=== PATIENT | male | born 1940 | race Two or more races ===

== ENCOUNTER 2018-09-10 07:06 | Emergency (ER) | payer OTHER, MEDICAID ==
[~2018-09-10] VITALS: Ht 175.3 cm; Wt 74.4 kg
[2018-09-10 07:45] VITALS: BP 157/87
[2018-09-10] MEDS ORDERED: ONDANSETRON HCL 4 MG/2 ML VIAL IV ONE (07:45)
[2018-09-10] MEDS ORDERED: SODIUM CHLORIDE 0.9% 1,000 ML IV ONE (07:45)
[2018-09-10] MEDS ORDERED: MORPHINE SULFATE 4 MG/ML SYR/VIAL IV ONE (07:45)
[2018-09-10 08:04] LABS: Basophils # (auto) 0 uL; Basophils % (auto) 0.7 % (0.0-2.0); Eosinophils # (auto) 0.1 uL; Eosinophils % (auto) 1.4 % (0.0-7.0); Hematocrit 46.5 % (41.0-53.0); Hemoglobin 16.2 g/dL (13.5-17.5); Lymphocytes # (auto) 0.9 uL; Lymphocytes % (auto) 22.9 % (10.0-50.0); Mean Corpuscular Hemoglobin 31.6 pg (28.0-32.0); Mean Corpuscular Hgb Conc. 34.8 g/dL (32.0-36.0); Mean Corpuscular Volume 90.7 fL (80.0-100.0); Monocytes # (auto) 0.4 uL; Monocytes % (auto) 9.5 % (0.0-12.0); Neutrophils # (auto) 2.7 uL; Neutrophils % (auto) 65.5 % (37.0-80.0); Nucleated Red Blood Cells % 0.1 %; Platelet Count (auto) 233 10^3/uL (140-450); Red Blood Cells 5.13 10^6/uL (4.5-5.90); Red Cell Distribution Width 14.1 % (11.8-14.3); White Blood Cell 4.1 10^3/uL (4.4-10.8)
[2018-09-10 08:23] LABS: Alanine Aminotransferase 26 U/L (16-61); Albumin 3.9 g/dL (3.4-5.0); Amylase 56 U/L (25-115); Anion Gap 4 (5-15); Blood Urea Nitrogen 16 mg/dL (7-18); Calcium 8.8 mg/dL (8.5-10.1); Carbon Dioxide 25 mmol/L (21-32); Chloride 106 mmol/L (98-107); Glucose 95 mg/dL (74-106); Lipase 106 U/L (73-393); Magnesium 2.2 mg/dL (1.6-2.6); Potassium 3.8 mmol/L (3.5-5.1); Sodium 135 mmol/L (136-145)
[2018-09-10 08:29] LABS: Alkaline Phosphatase 68 U/L (45-117); Aspartate Aminotransferase 22 U/L (15-37); BUN/Creatinine Ratio 14.7; Bilirubin, Total 1.3 mg/dL (0.2-1.0); GFR African American 84 mL/min; GFR Non-African American 70 mL/min; Total Protein 7.9 g/dL (6.4-8.2)
[2018-09-10 09:03] LABS: Urine Amorphous Crystal FEW /hpf (None Seen); Urine Bacteria NONE SEEN /hpf (None Seen); Urine Blood Negative /uL (Negative); Urine Hyaline Cast FEW /lpf (0 - 2); Urine Mucus FEW (None Seen); Urine Specific Gravity 1.014 (1.001-1.035); Urine WBC 2 /hpf (0 - 3)
== END 2018-09-10 11:08 | disposition home or self-care (01) ==
LOC: EDBD 07:06 → EDUNIT# 07:06 → ER 07:06
DX: K80.10 Calculus of gallbladder with chronic cholecystitis without obstruction (principal); R06.02 Shortness of breath; I10 Essential (primary) hypertension; Z90.49 Acquired absence of other specified parts of digestive tract
CPT/HCPCS: 36415; 74176; 80053; 81001; 82150; 83690; 83735; 84484; 85025; 93005; 96361; 96374; 96375; 99284; J2270; J2405; J7030

== ENCOUNTER 2019-06-09 11:22 | Emergency (ER) | payer OTHER, MEDICAID ==
[~2019-06-09] VITALS: Ht 175.3 cm; Wt 76.2 kg
[2019-06-09] MEDS ORDERED: SODIUM CHLORIDE 0.9% 1,000 ML IV ONE (11:26)
[2019-06-09 12:02] LABS: Basophils # (auto) 0 uL; Basophils % (auto) 0.8 % (0.0-2.0); Eosinophils # (auto) 0.1 uL; Eosinophils % (auto) 1.9 % (0.0-7.0); Hematocrit 44.4 % (41.0-53.0); Hemoglobin 15.3 g/dL (13.5-17.5); Lymphocytes # (auto) 1.2 uL; Lymphocytes % (auto) 25.7 % (10.0-50.0); Mean Corpuscular Hemoglobin 31.5 pg (28.0-32.0); Mean Corpuscular Hgb Conc. 34.5 g/dL (32.0-36.0); Mean Corpuscular Volume 91.3 fL (80.0-100.0); Monocytes # (auto) 0.4 uL; Monocytes % (auto) 7.9 % (0.0-12.0); Neutrophils # (auto) 2.9 uL; Neutrophils % (auto) 63.7 % (37.0-80.0); Platelet Count (auto) 211 10^3/uL (140-450); Red Blood Cells 4.86 10^6/uL (4.5-5.90); Red Cell Distribution Width 14.8 % (11.8-14.3); White Blood Cell 4.5 10^3/uL (4.4-10.8)
[2019-06-09 12:14] LABS: Alanine Aminotransferase 24 U/L (16-61); Albumin 3.9 g/dL (3.4-5.0); Anion Gap 7 (5-15); Aspartate Aminotransferase 19 U/L (15-37); BUN/Creatinine Ratio 18.3; Blood Urea Nitrogen 21 mg/dL (7-18); Calcium 8.5 mg/dL (8.5-10.1); Carbon Dioxide 25 mmol/L (21-32); Chloride 109 mmol/L (98-107); GFR African American 79 mL/min; GFR Non-African American 65 mL/min; Glucose 105 mg/dL (74-106); INR 1.01 (0.9-1.15); Partial Thromboplastin Time 26.7 sec (23.64-32.05); Potassium 3.8 mmol/L (3.5-5.1); Sodium 141 mmol/L (136-145)
[2019-06-09 12:18] LABS: Alkaline Phosphatase 68 U/L (45-117); Total Protein 7.7 g/dL (6.4-8.2)
[2019-06-09] MEDS ORDERED: LORazepam 2MG/ML-1ML VIAL IV ONE (12:30)
[2019-06-09] MEDS ORDERED: KETOROLAC TROMETH 30 MG/ML 1ML VIAL IV ONE (12:30)
[2019-06-09] MEDS ORDERED: ASPirin 81 mg TAB PO ONE (12:30)
[2019-06-09] MEDS ORDERED: NITROGLYCERIN 0.4 MG SL TAB SL ONE (12:30)
[2019-06-09 16:13] VITALS: BP 123/60
== END 2019-06-09 17:30 | disposition home or self-care (01) ==
LOC: EDBD 11:22 → ER 11:22
DX: R07.89 Other chest pain (principal); I10 Essential (primary) hypertension; J45.909 Unspecified asthma, uncomplicated; R42 Dizziness and giddiness
CPT/HCPCS: 36415; 71045; 80053; 83880; 84484; 85025; 85610; 85730; 93005; 94761; 96361; 96374; 96375; 99284; J1885; J2060; J7030

== ENCOUNTER 2019-08-30 09:27 | Emergency (ER) | payer OTHER, MEDICAID ==
[~2019-08-30] VITALS: Ht 172.7 cm; Wt 81.6 kg
[2019-08-30 11:04] LABS: Basophils # (auto) 0.1 uL; Basophils % (auto) 0.8 % (0.0-2.0); Eosinophils # (auto) 0.1 uL; Eosinophils % (auto) 0.7 % (0.0-7.0); Hematocrit 48.3 % (41.0-53.0); Hemoglobin 16.6 g/dL (13.5-17.5); Lymphocytes # (auto) 0.7 uL; Lymphocytes % (auto) 7.7 % (10.0-50.0); Mean Corpuscular Hemoglobin 31.4 pg (28.0-32.0); Mean Corpuscular Hgb Conc. 34.3 g/dL (32.0-36.0); Mean Corpuscular Volume 91.6 fL (80.0-100.0); Monocytes # (auto) 0.4 uL; Monocytes % (auto) 4.6 % (0.0-12.0); Neutrophils # (auto) 7.7 uL; Neutrophils % (auto) 86.2 % (37.0-80.0); Nucleated Red Blood Cells % 0.1 %; Platelet Count (auto) 209 10^3/uL (140-450); Red Blood Cells 5.28 10^6/uL (4.5-5.90); Red Cell Distribution Width 14.5 % (11.8-14.3); White Blood Cell 8.9 10^3/uL (4.4-10.8)
[2019-08-30 11:24] LABS: Albumin 4.2 g/dL (3.4-5.0); Anion Gap 4 (5-15); Blood Urea Nitrogen 17 mg/dL (7-18); Calcium 9.1 mg/dL (8.5-10.1); Carbon Dioxide 30 mmol/L (21-32); Chloride 105 mmol/L (98-107); Glucose 109 mg/dL (74-106); Lipase 239 U/L (73-393); Potassium 4.3 mmol/L (3.5-5.1); Sodium 139 mmol/L (136-145)
[2019-08-30 11:30] LABS: Alanine Aminotransferase 45 U/L (16-61); Alkaline Phosphatase 79 U/L (45-117); Aspartate Aminotransferase 47 U/L (15-37); BUN/Creatinine Ratio 15.3; Bilirubin, Total 0.7 mg/dL (0.2-1.0); GFR African American 82 mL/min; GFR Non-African American 68 mL/min; Total Protein 8.7 g/dL (6.4-8.2)
[2019-08-30 13:49] LABS: Urine Bacteria NONE SEEN /hpf (None Seen); Urine Blood Negative /uL (Negative); Urine Specific Gravity 1.009 (1.001-1.035); Urine WBC 1 /hpf (0 - 3)
[2019-08-30 15:00] VITALS: BP 131/75
== END 2019-08-30 15:50 | disposition home or self-care (01) ==
LOC: EDBD 09:27 → ER 09:27
DX: N40.0 Benign prostatic hyperplasia without lower urinary tract symptoms (principal); J45.909 Unspecified asthma, uncomplicated; I10 Essential (primary) hypertension
CPT/HCPCS: 36415; 74176; 80053; 81001; 83690; 84484; 85025; 93005

== ENCOUNTER 2020-06-09 09:45 | Emergency (ER) | payer OTHER, MEDICAID ==
[~2020-06-09] VITALS: Ht 175.3 cm; Wt 68.0 kg
[2020-06-09 10:20] VITALS: BP 181/79
[2020-06-09 10:37] LABS: Basophils # (auto) 0 10 ^3/uL (0-0.2); Basophils % (auto) 0.8 % (0.0-2.0); Eosinophils # (auto) 0.1 10 ^3/uL (0-0.8); Eosinophils % (auto) 1.6 % (0.0-7.0); Hematocrit 47.1 % (41.0-53.0); Hemoglobin 15.6 g/dL (13.5-17.5); Lymphocytes % (auto) 18.4 % (10.0-50.0); Mean Corpuscular Hemoglobin 30.7 pg (28.0-32.0); Mean Corpuscular Hgb Conc. 33.1 g/dL (32.0-36.0); Mean Corpuscular Volume 92.8 fL (80.0-100.0); Monocytes # (auto) 0.4 10 ^3/uL (0-1.3); Neutrophils # (auto) 3.8 10 ^3/uL (1.6-8.6); Neutrophils % (auto) 71.2 % (37.0-80.0); Nucleated Red Blood Cells % 0.1 %; Platelet Count (auto) 240 10^3/uL (140-450); Red Blood Cells 5.07 10^6/uL (4.5-5.90); Red Cell Distribution Width 14.6 % (11.8-14.3); White Blood Cell 5.3 10^3/uL (4.4-10.8)
[2020-06-09 10:39] LABS: Urine Bacteria NONE SEEN /hpf (None Seen); Urine Blood Negative /uL (Negative); Urine Specific Gravity 1.006 (1.001-1.035); Urine WBC <1 /hpf (0 - 3)
[2020-06-09 10:57] LABS: Anion Gap 6 (5-15); Blood Urea Nitrogen 16 mg/dL (7-18); Carbon Dioxide 24 mmol/L (21-32); Chloride 109 mmol/L (98-107); Glucose 93 mg/dL (74-106); Potassium 3.9 mmol/L (3.5-5.1); Sodium 139 mmol/L (136-145)
[2020-06-09 11:02] LABS: Alanine Aminotransferase 31 U/L (16-61); Alkaline Phosphatase 65 U/L (45-117); Aspartate Aminotransferase 26 U/L (15-37); BUN/Creatinine Ratio 12.8; Bilirubin, Total 1.1 mg/dL (0.2-1.0); GFR African American 71 mL/min; GFR Non-African American 59 mL/min; Total Protein 8.1 g/dL (6.4-8.2)
[2020-06-09] MEDS ORDERED: SODIUM CHLORIDE 0.9% 1,000 ML IV ONE (11:50)
[2020-06-09] MEDS ORDERED: SODIUM CHLORIDE 0.9% 500 ML IVB ONE (11:50)
== END 2020-06-09 13:08 | disposition home or self-care (01) ==
LOC: EDBD 09:45 → ER 09:45
DX: T67.5XXA Heat exhaustion, unspecified, initial encounter (principal); I10 Essential (primary) hypertension; R53.1 Weakness; G43.909 Migraine, unspecified, not intractable, without status migrainosus; X58.XXXA Exposure to other specified factors, initial encounter; Y93.89 Activity, other specified; Y92.89 Other specified places as the place of occurrence of the external cause; Y99.8 Other external cause status
CPT/HCPCS: 36415; 70450; 71046; 80053; 81001; 84484; 85025; 93005; 96360; 99285; J7040

== ENCOUNTER 2020-06-22 09:05 | Inpatient (IN) | payer OTHER, MEDICAID ==
[~2020-06-22] VITALS: Ht 175.3 cm; Wt 74.6 kg
[2020-06-22 09:32] LABS: Basophils # (auto) 0 10 ^3/uL (0-0.2); Basophils % (auto) 0.7 % (0.0-2.0); Eosinophils # (auto) 0 10 ^3/uL (0-0.8); Eosinophils % (auto) 0.6 % (0.0-7.0); Hematocrit 43.8 % (41.0-53.0); Hemoglobin 15.2 g/dL (13.5-17.5); Lymphocytes # (auto) 0.9 10 ^3/uL (0.4-5.4); Lymphocytes % (auto) 23.6 % (10.0-50.0); Mean Corpuscular Hemoglobin 32.2 pg (28.0-32.0); Mean Corpuscular Hgb Conc. 34.7 g/dL (32.0-36.0); Mean Corpuscular Volume 92.7 fL (80.0-100.0); Monocytes # (auto) 0.2 10 ^3/uL (0-1.3); Monocytes % (auto) 5.2 % (0.0-12.0); Neutrophils # (auto) 2.8 10 ^3/uL (1.6-8.6); Neutrophils % (auto) 69.9 % (37.0-80.0); Nucleated Red Blood Cells % 0.1 %; Platelet Count (auto) 225 10^3/uL (140-450); Red Blood Cells 4.73 10^6/uL (4.5-5.90); Red Cell Distribution Width 14.4 % (11.8-14.3); White Blood Cell 3.9 10^3/uL (4.4-10.8)
[2020-06-22 09:55] LABS: Alanine Aminotransferase 29 U/L (16-61); Albumin 3.7 g/dL (3.4-5.0); Anion Gap 4 (5-15); Aspartate Aminotransferase 16 U/L (15-37); Blood Urea Nitrogen 13 mg/dL (7-18); Calcium 8.7 mg/dL (8.5-10.1); Carbon Dioxide 25 mmol/L (21-32); Chloride 110 mmol/L (98-107); Glucose 128 mg/dL (74-106); Magnesium 2.2 mg/dL (1.6-2.6); Potassium 3.7 mmol/L (3.5-5.1); Sodium 139 mmol/L (136-145)
[2020-06-22 09:59] LABS: Alkaline Phosphatase 60 U/L (45-117); BUN/Creatinine Ratio 10.7; Bilirubin, Total 0.7 mg/dL (0.2-1.0); GFR African American 74 mL/min; GFR Non-African American 61 mL/min; Total Protein 7.5 g/dL (6.4-8.2)
[2020-06-22 11:02] LABS: Urine WBC None Seen /hpf (0 - 3)
[2020-06-22 11:12] LABS: Urine Bacteria NONE SEEN /hpf (None Seen); Urine Blood Negative /uL (Negative); Urine Specific Gravity 1.006 (1.001-1.035)
[2020-06-22] MEDS ORDERED: SODIUM CHLORIDE 0.9% 1,000 ML IVB ONE (11:45)
[2020-06-22] MEDS ORDERED: cefTRIAXone 1GM/50ML D5W 50 ML IV ONE (11:45)
[2020-06-22 12:43] LABS: INR 1.03 (0.9-1.15); Partial Thromboplastin Time 23.9 sec (23.0-31.2)
[2020-06-22] MEDS ORDERED: ZINC SULFATE 220mg CAP or TAB PO ONE (13:30)
[2020-06-22] MEDS ORDERED: DOXYCYCLINE 100MG/250ML 250 ML IV ONE (13:30)
[2020-06-22] MEDS ORDERED: ASCORBIC ACID 500 MG TAB PO ONE (13:30)
[2020-06-22] MEDS ORDERED: MORPHINE SULF INJ 2 MG/ML SYRINGE 1ML IV PRN ×3 (14:15→15:00)
[2020-06-22] MEDS ORDERED: NITROGLYCERIN 0.4 MG SL TAB SL PRN ×2 (14:15→15:00)
[2020-06-22] MEDS ORDERED: ACETAMINOPHEN 500 MG TAB PO PRN (15:00)
[2020-06-22] MEDS ORDERED: ACETAMINOPHEN 325 MG TAB PO PRN (15:00)
[2020-06-22] MEDS ORDERED: SODIUM CHLORIDE 0.9% 1,000 ML IV SCH (15:00)
[2020-06-22] MEDS ORDERED: ONDANSETRON HCL 4 MG/2 ML VIAL IV PRN (15:00)
[2020-06-22] MEDS ORDERED: LORazepam 0.5 MG TAB PO PRN (15:00)
[2020-06-22] MEDS ORDERED: DOCUSATE SOD 100 MG CAP PO PRN (15:00)
[2020-06-22] MEDS ORDERED: ALUM & MAG HYDROX-SIMETH LIQ(MAALOX) 30 ML PO PRN (15:00)
[2020-06-22] MEDS ORDERED: HYDROcodone-ACET 5/325MG TAB PO PRN (15:00)
[2020-06-22] MEDS ORDERED: hydrALAZINE HCL 25 MG TAB PO PRN (15:15)
[2020-06-22 16:57] LABS: Alcohol, Urine < 3.0 mg/dL (0-10); Amphetamine Screen, Urine NEGATIVE (NEGATIVE); Barbiturate Scree,Urine NEGATIVE (NEGATIVE); Benzodiazephine Screen, Urine NEGATIVE (NEGATIVE); Cannabinoid Screen, Urine NEGATIVE (NEGATIVE); Cocaine Screen, Urine NEGATIVE (NEGATIVE); Opiate Scree,Urine NEGATIVE (NEGATIVE); Phencyclidine Screen, Urine NEGATIVE (NEGATIVE)
--- NOTE | 2020-06-22 16:58 | NUR ---
Telemetry admit from ER CELINA THURSTON admitted to Telemetry unit after SBAR received. Patient oriented to Jaqueline Ernandez, primary RN, unit, room, bed, and unit policies regarding patient care and visiting hours. Patient now on continuous telemetry monitoring, tele box #2 and telemetry reading on arrival to unit is SB @ 55 BPM. Bed set to lowest position/locked, bedside rails up x2, call light within reach. Instructed patient to call for assistance. Patient verbalized understanding. Will continue to monitor q 1hr and prn.
[2020-06-22 17:02] VITALS: BP 138/75
[2020-06-22] MEDS ORDERED: LANS30CA57 PO (18:17)
[2020-06-22] MEDS ORDERED: TRAM50TA2 PO (18:17)
[2020-06-22] MEDS ORDERED: OMEP20TA PO (18:17)
[2020-06-22] MEDS ORDERED: LISI-648 PO (18:17)
[2020-06-22] MEDS ORDERED: METO10TA3 PO (18:17)
[2020-06-22] MEDS ORDERED: MECL1CHW PO (18:17)
[2020-06-22] MEDS ORDERED: HYDR2.5L TOP (18:17)
--- NOTE | 2020-06-22 19:30 | NUR ---
Opening Shift Note Assumed care of patient, awake and alert x4. Patient denies pain or shortness of breath at this time. No sign/symptoms of distress noted or verbalized at this time. Instructed on plan of care and encouraged patient to call for assistance as needed, patient verbalized understanding. Bed is locked in lowest position, side rails x 2 are up, call light is within reach, and bed alarm is on.
[2020-06-22] MEDS: FAMOTIDINE (10MG/ML) 2ML VL IV SCH (21:23)
[2020-06-22] MEDS: ATORVASTATIN 20 MG TAB PO SCH (21:24)
[2020-06-22] MEDS: DOXAZOSIN MESYL 2 MG TAB PO SCH (21:24)
[2020-06-22 22:00] VITALS: BP 150/70
[2020-06-22] MEDS: BUDESONIDE (INHALATION) 180 MCG IH IN SCH (22:12)
[2020-06-22] MEDS: ALBUTEROL SULF HFA 90MCG INH 200DOSE IN SCH (22:12)
--- NOTE | 2020-06-22 22:12 | NUR ---
MDI HELD AT THIS TIME, AWAITING COVID RESULTS. PT IN NO RESPIRATORY DISTRESS. WILL CONTINUE TO MONITOR.
--- NOTE | 2020-06-22 22:52 | NUR ---
EKG EKG performed as ordered by and placed in hardchart.
[2020-06-23 04:32] VITALS: BP 158/77
[2020-06-23] MEDS: BUDESONIDE (INHALATION) 180 MCG IH IN SCH (06:52)
[2020-06-23] MEDS: ALBUTEROL SULF HFA 90MCG INH 200DOSE IN SCH (06:53)
[2020-06-23 07:01] LABS: Basophils # (auto) 0 10 ^3/uL (0-0.2); Basophils % (auto) 0.8 % (0.0-2.0); Eosinophils # (auto) 0.1 10 ^3/uL (0-0.8); Eosinophils % (auto) 1.3 % (0.0-7.0); Hematocrit 42.4 % (41.0-53.0); Hemoglobin 14.8 g/dL (13.5-17.5); Lymphocytes % (auto) 20.9 % (10.0-50.0); Mean Corpuscular Hgb Conc. 34.9 g/dL (32.0-36.0); Mean Corpuscular Volume 91.7 fL (80.0-100.0); Monocytes # (auto) 0.4 10 ^3/uL (0-1.3); Monocytes % (auto) 7.6 % (0.0-12.0); Neutrophils # (auto) 3.2 10 ^3/uL (1.6-8.6); Neutrophils % (auto) 69.4 % (37.0-80.0); Platelet Count (auto) 226 10^3/uL (140-450); Red Blood Cells 4.62 10^6/uL (4.5-5.90); Red Cell Distribution Width 14.7 % (11.8-14.3); White Blood Cell 4.6 10^3/uL (4.4-10.8)
--- NOTE | 2020-06-23 07:20 | NUR ---
OPENING NOTE ASSUMED CARE OF PT. ALERT AND ORIENTED. NO S/S OF SOB/DISTRESS NOTED. BED SET TO LOWEST POSITION/LOCKED. BEDSIDE RAILS UP X2. CALL LIGHT WITHIN REACH. INSTRUCTED PT TO CALL FOR ASSISTANCE. UPDATED ON POC. WILL CONTINUE TO MONITOR Q1HR AND PRN.
[2020-06-23 07:22] LABS: Albumin 3.5 g/dL (3.4-5.0); Calcium 8.3 mg/dL (8.5-10.1); Potassium 3.9 mmol/L (3.5-5.1)
[2020-06-23 07:27] LABS: BUN/Creatinine Ratio 12.1; Bilirubin, Total 0.5 mg/dL (0.2-1.0)
[2020-06-23 07:31] LABS: Cholesterol 138 mg/dL (< 200); HDL Cholesterol 42 mg/dL (40-59); LDL Cholesterol 90 mg/dL (< 100); Triglycerides 136 mg/dL (< 150)
[2020-06-23 08:00] VITALS: BP 109/64
[2020-06-23 08:33] LABS: CRP High Sensitivity 0.08 mg/dL (< 0.3); Magnesium 2.2 mg/dL (1.6-2.6)
[2020-06-23 09:21] VITALS: BP 158/70
[2020-06-23] MEDS: cefTRIAXone 1GM/50ML D5W 50 ML IV SCH (09:30)
[2020-06-23] MEDS: ASPirin 81 mg TAB PO SCH (09:31)
[2020-06-23] MEDS: AZITHROMYCIN 500MG/ 250ML 250 ML IV SCH (09:31)
[2020-06-23] MEDS: LISINOPRIL 10 MG TAB PO SCH (09:33)
[2020-06-23] MEDS: ENOXAPARIN SOD 40 MG/0.4 ML SYRINGE SC SCH (09:33)
[2020-06-23] MEDS ORDERED: CHOLECALCIFEROL (VITD3) 2,000 UNIT CAP PO SCH (10:00)
[2020-06-23] MEDS ORDERED: ASCORBIC ACID 1,000 MG TAB PO SCH (10:00)
[2020-06-23] MEDS ORDERED: ZINC SULFATE 220mg CAP or TAB PO SCH (10:00)
[2020-06-23] MEDS ORDERED: DexAMETHasone SOD PHOS 10MG/1ML VIAL INJ IV SCH (10:00)
[2020-06-23] MEDS ORDERED: hydrALAZINE HCL 25 MG TAB PO PRN (10:45)
[2020-06-23 12:00] VITALS: BP 102/63
--- NOTE | 2020-06-23 13:31 | NUR ---
REPORT GIVE AND ENDORSED CARE TO ANNMARIE KEBEDE
[2020-06-23] MEDS: IPRATROPIUM BROM 0.5 MG/2.5ML INH SOL NEB SCH ×3 (13:43→23:21)
--- NOTE | 2020-06-23 14:25 | NUR ---
PATIENT TRANSPORTED TO ROOM 296 B. NO S/S OF SOB/DISTRESS NOTED.
--- NOTE | 2020-06-23 14:26 | NUR ---
RECEIVED PATIENT FROM [facility]. PATIENT SHOWS NO SIGNS OF DISTRESS AT THIS TIME.
[2020-06-23 16:56] VITALS: BP 106/74
--- NOTE | 2020-06-23 18:25 | NUR ---
AT BEDSIDE FOR MED NEB TX. PT EATING AT THIS TIME WILL RETURN TO ADMINISTER MED NEB TX.
--- NOTE | 2020-06-23 19:30 | NUR ---
Opening shift note Assumed care of patient from day shift RN. Patient is A&Ox4, respirations even and non-labored without s/s of distress and the patient denies any pain at this time. Bed in lowest locked position with 2 side rails up, call light within reach, will continue to monitor Q1hr and PRN.
[2020-06-23 22:00] VITALS: BP 134/91
[2020-06-23] MEDS: CALCIUM CARB 500 MG CHEW TAB PO SCH (22:55)
[2020-06-23] MEDS: DOXAZOSIN MESYL 2 MG TAB PO SCH (22:56)
[2020-06-23] MEDS: FAMOTIDINE (10MG/ML) 2ML VL IV SCH (22:56)
[2020-06-23] MEDS: ATORVASTATIN 20 MG TAB PO SCH (22:56)
[2020-06-24] MEDS: IPRATROPIUM BROM 0.5 MG/2.5ML INH SOL NEB SCH ×6 (02:22→22:13)
[2020-06-24 05:00] VITALS: BP 115/68
--- NOTE | 2020-06-24 07:47 | NUR ---
Closing shift note Patient resting, respirations even and non-labored with no s/s of distress at this time. Endorsed care to day shift RN.
[2020-06-24 08:00] VITALS: BP 134/81
[2020-06-24 09:00] VITALS: BP 109/60
[2020-06-24] MEDS: cefTRIAXone 1GM/50ML D5W 50 ML IV SCH (09:48)
[2020-06-24] MEDS: CALCIUM CARB 500 MG CHEW TAB PO SCH ×2 (10:38→21:49)
[2020-06-24] MEDS: AZITHROMYCIN 500MG/ 250ML 250 ML IV SCH (10:38)
[2020-06-24] MEDS: ASPirin 81 mg TAB PO SCH (10:38)
[2020-06-24] MEDS: ENOXAPARIN SOD 40 MG/0.4 ML SYRINGE SC SCH (10:39)
[2020-06-24] MEDS: LISINOPRIL 10 MG TAB PO SCH (10:45)
--- NOTE | 2020-06-24 10:50 | NUR ---
MONITORED OXYGEN WHILE OFF O2 FOR 15 MINUTES PER MD ORDER. PATIENT SATURATING 95% PATIENT VERBALIZED SOME SOB REAPPLIED O2. WILL CONTINUE TO MONITOR
[2020-06-24] MEDS ORDERED: FLUTICASONE PROP NASAL SPR 0.05 % (50MCG) 16GM EACHNOSTRI ONE (11:30)
[2020-06-24] MEDS ORDERED: IOHEXOL 350 MG/ML 100ML IJ ONE ×2 (11:49→11:57)
--- NOTE | 2020-06-24 12:36 | NUR ---
CALLED PHARMACY REGARDING THE FLONASE. THEY STATED THEY WILL SEND IT UP
[2020-06-24 13:00] VITALS: BP 129/66
--- NOTE | 2020-06-24 13:11 | NUR ---
GAVE REPORT TO ANNMARIE MARTINEZ. MICHELLE TO TAKE OVER CARE OF PATIENT
--- NOTE | 2020-06-24 13:40 | NUR ---
Assumed care of patient. Patient alert and oriented X4. Patient comfortable in bed, no distress, sob, or pain noted at this time. Will cont to monitor patient.
[2020-06-24 17:00] VITALS: BP_SYST 109; BP_SYST 145; BP_DIAS 60; BP_DIAS 66
--- NOTE | 2020-06-24 19:50 | NUR ---
Opening Shift Note Assumed care of patient, awake and alert x4. No S/S of distress/SOB or pain. Patient states he does not feel short at this time only when he ambulates. Call light is within reach, side rails up x2, bed is in the lowest position. Instructed on POC and to call for assist PRN, will continue to monitor for changes Q1hr and PRN.
[2020-06-24] MEDS: ATORVASTATIN 20 MG TAB PO SCH (21:48)
[2020-06-24] MEDS: DOXAZOSIN MESYL 2 MG TAB PO SCH (21:48)
[2020-06-24] MEDS: FLUTICASONE PROP NASAL SPR 0.05 % (50MCG) 16GM EACHNOSTRI SCH (21:49)
[2020-06-24] MEDS: FAMOTIDINE (10MG/ML) 2ML VL IV SCH (21:49)
[2020-06-24 22:18] VITALS: BP 118/72
[2020-06-25] MEDS: IPRATROPIUM BROM 0.5 MG/2.5ML INH SOL NEB SCH ×4 (02:00→19:28)
--- NOTE | 2020-06-25 02:10 | NUR ---
Respiratory note: PT SLEEPING AND REFUSED MED NEB TX AT THIS TIME. NO S/S OF DISTRESS AT THIS TIME. ADVISED PT TO CALL IF TX IS NEEDED.
[2020-06-25 05:00] VITALS: BP 114/74
--- NOTE | 2020-06-25 07:35 | NUR ---
Opening Note Received report from restaurant shift leader RN. Patient is awake, alert and oriented x4. Patient is on room air, respirations even and unlabored. No signs or symptoms of distress noted at this time. Reviewed plan of care with patient. Bed alarm on for safety, patient complains of dizziness. Patient instructed to call for assistance. Bed in low and locked position, call light within reach. Will continue to monitor Q1 hour and PRN.
[2020-06-25 08:56] VITALS: BP 125/76
[2020-06-25] MEDS: ASPirin 81 mg TAB PO SCH (09:50)
[2020-06-25] MEDS: cefTRIAXone 1GM/50ML D5W 50 ML IV SCH (09:50)
[2020-06-25] MEDS: CALCIUM CARB 500 MG CHEW TAB PO SCH ×2 (09:51→22:22)
[2020-06-25] MEDS: LISINOPRIL 10 MG TAB PO SCH (09:51)
[2020-06-25] MEDS: ENOXAPARIN SOD 40 MG/0.4 ML SYRINGE SC SCH (09:51)
[2020-06-25] MEDS: FLUTICASONE PROP NASAL SPR 0.05 % (50MCG) 16GM EACHNOSTRI SCH ×2 (09:56→22:21)
[2020-06-25 10:15] LABS: BUN/Creatinine Ratio 17.2; Calcium 8.7 mg/dL (8.5-10.1); Potassium 3.8 mmol/L (3.5-5.1)
--- NOTE | 2020-06-25 10:21 | NUR ---
Dr. Oscar at bedside MD at bedside discussing plan of care with patient and this RN. Blood pressure assessed Left arm 116/65, right arm 117/70. New orders received. Patient verbalized understanding. Will continue to monitor Q1 hour and PRN.
[2020-06-25] MEDS ORDERED: SODIUM CHLORIDE 0.9% 1,000 ML IV ONE (10:30)
[2020-06-25 11:09] LABS: Folate (Folic Acid) 12.91 ng/mL (5.38-24)
[2020-06-25] MEDS ORDERED: CYANOCOBALAMIN (B-12) 1000 MCG/1 ML VIAL SUBCUT ONE (12:30)
[2020-06-25 12:50] VITALS: BP 100/68
--- NOTE | 2020-06-25 13:00 | NUR ---
ultra sound tech at bedside
--- NOTE | 2020-06-25 13:38 | NUR ---
Patient taken down to radiology
--- NOTE | 2020-06-25 14:20 | NUR ---
patient back to room
--- NOTE | 2020-06-25 14:40 | NUR ---
Nutrition Assessment Notes Please see attached link for complete assessment Est energy needs BW 76 [id number] kcal (25-30 kcal/kg BW) Est protein needs 76-91g (1.0-1.2g/kg BW) Will reassess prn. Addendum: 06/25/20 at [address] Amended: Links added.
[2020-06-25 17:04] VITALS: BP 121/73
--- NOTE | 2020-06-25 19:00 | NUR ---
Closing Note Report given to fertilizer loader RN. No signs or symptoms of distress noted at this time.
--- NOTE | 2020-06-25 19:28 | NUR ---
Opening Shift Note Assumed care of patient. Pt is awake and alert, oriented x 4. No S/S of respiratory distress noted. Respirations are regular and non-labored. Patient denies pain at this time. Bed in lowest locked position, side rails x 2 up, call light is within reach. Telemetry box matches quality assurance monitor chassis. Instructed on POC and to call for assistance as needed. Will continue to monitor for changes Q1hr and PRN.
[2020-06-25] MEDS ORDERED: CYANOCOBALAMIN (B-12) 1000 MCG/1 ML VIAL IM ONE (19:45)
[2020-06-25 20:00] VITALS: BP 131/71
[2020-06-25] MEDS ORDERED: LORazepam 2MG/ML-1ML VIAL IV PRN (20:00)
[2020-06-25 22:00] VITALS: BP 131/71
[2020-06-25] MEDS: ATORVASTATIN 20 MG TAB PO SCH (22:22)
[2020-06-25] MEDS: DOXAZOSIN MESYL 2 MG TAB PO SCH (22:22)
[2020-06-26] MEDS: IPRATROPIUM BROM 0.5 MG/2.5ML INH SOL NEB SCH ×3 (00:56→19:26)
--- NOTE | 2020-06-26 00:56 | NUR ---
Respiratory note: PT SEEN FOR SCHEDULED MED NEB TX AT 0056. PT REFUSED HIS TX AT THIS TIME WHEN I WOKE HIM UP HE WAS SHAKING HIS HEAD NO. PATIENT IS NOT IN ANY RESPIRATORY DISTRESS. HR 64 RR 16 SP02 98% ON ROOM AIR.
[2020-06-26 04:56] VITALS: BP 123/77
--- NOTE | 2020-06-26 06:22 | NUR ---
Respiratory note: PT REFUSED MEDNEB TX AT THIS TIME, WANTS TO SLEEP. SPO2 95% ON ROOM AIR. NO S/S OF DISTRESS. WILL RETURN FOR NEXT SCHEDULED TX.
[2020-06-26 07:17] LABS: Calcium 8.6 mg/dL (8.5-10.1); Potassium 3.9 mmol/L (3.5-5.1)
[2020-06-26 07:20] LABS: BUN/Creatinine Ratio 18.8
--- NOTE | 2020-06-26 07:25 | NUR ---
Opening Note Received report from film processing shift supervisor RN. Patient is awake, alert and oriented x4. Patient is on room air, respirations even and unlabored. No signs or symptoms of distress noted at this time. Reviewed plan of care with patient. Patient instructed to call for assistance. Bed in low and locked position, call light within reach. Will continue to monitor Q1 hour and PRN.
[2020-06-26 08:15] LABS: Basophils # (auto) 0 10 ^3/uL (0-0.2); Basophils % (auto) 0.6 % (0.0-2.0); Eosinophils # (auto) 0.1 10 ^3/uL (0-0.8); Eosinophils % (auto) 1.7 % (0.0-7.0); Hematocrit 42.9 % (41.0-53.0); Hemoglobin 14.6 g/dL (13.5-17.5); Lymphocytes % (auto) 22.2 % (10.0-50.0); Mean Corpuscular Hemoglobin 31.4 pg (28.0-32.0); Mean Corpuscular Hgb Conc. 34.1 g/dL (32.0-36.0); Mean Corpuscular Volume 92.2 fL (80.0-100.0); Monocytes # (auto) 0.4 10 ^3/uL (0-1.3); Monocytes % (auto) 9.8 % (0.0-12.0); Neutrophils # (auto) 2.9 10 ^3/uL (1.6-8.6); Neutrophils % (auto) 65.7 % (37.0-80.0); Nucleated Red Blood Cells % 0.1 %; Platelet Count (auto) 240 10^3/uL (140-450); Red Blood Cells 4.65 10^6/uL (4.5-5.90); Red Cell Distribution Width 14.2 % (11.8-14.3); White Blood Cell 4.5 10^3/uL (4.4-10.8)
[2020-06-26 08:56] VITALS: BP 135/83
[2020-06-26] MEDS: CALCIUM CARB 500 MG CHEW TAB PO SCH ×2 (09:03→22:18)
[2020-06-26] MEDS: FLUTICASONE PROP NASAL SPR 0.05 % (50MCG) 16GM EACHNOSTRI SCH ×2 (09:03→22:17)
[2020-06-26] MEDS: ENOXAPARIN SOD 40 MG/0.4 ML SYRINGE SC SCH (09:03)
[2020-06-26 09:04] LABS: INR 1.04 (0.9-1.15)
[2020-06-26] MEDS: ASPirin 81 mg TAB PO SCH (09:15)
[2020-06-26] MEDS: CYANOCOBALAMIN 500 MCG TAB PO SCH (09:15)
[2020-06-26] MEDS: LISINOPRIL 10 MG TAB PO SCH (09:16)
--- NOTE | 2020-06-26 10:06 | NUR ---
Consents Angie ANGUIANO at bedside consenting patient for procedure today, Lila ANGUIANO translating. All questions and concerns addressed. Will continue to monitor Q1 hour and PRN.
--- NOTE | 2020-06-26 10:50 | NUR ---
patient taken down to laborer hoisting
[2020-06-26] MEDS ORDERED: MIDAZOLAM HCL 1MG/1ML-2 ML VIAL ONE (11:02)
[2020-06-26] MEDS ORDERED: fentaNYL CITRATE 100 MCG/2 ML VL ONE (11:02)
[2020-06-26] MEDS ORDERED: LIDOCAINE 2%HCL (LOCAL ANESTH.) INJ 20ML MDV ONE ×2 (11:04→11:17)
[2020-06-26] MEDS ORDERED: ANGIOMAX 250 MG VIAL IV ONE ×2 (11:48→12:31)
[2020-06-26] MEDS ORDERED: SODIUM CHL 0.9% 50 ML ONE ×2 (11:48→12:31)
[2020-06-26] MEDS ORDERED: IODIXANOL 320MG/ML 100ML BTL IV ONE (11:52)
--- NOTE | 2020-06-26 12:28 | NUR ---
Respiratory note: UNABLE TO ADMIN SCHEDULED 1200 MEDNEB TX, PT STILL OFF UNIT AT PROCEDURE.
[2020-06-26] MEDS ORDERED: CLOPIDOGREL 300 MG TAB ONE (13:01)
[2020-06-26] MEDS ORDERED: ASPirin 325 MG TAB ONE (13:01)
[2020-06-26 13:54] VITALS: BP 135/83
--- NOTE | 2020-06-26 14:02 | NUR ---
Patient back to room Patient is s/p subclavian angiogram. Patient is awake,alert and oriented x4. No signs or symptoms of distress noted at this time. Dressing to right groin is clean, dry and intact. No signs or bleeding or hematoma noted at this time. Patient instructed to lay flat until 1600, patient verbalized understanding. Bed in low and locked position, call light within reach. Will continue to monitor Q1 hour and PRN.
[2020-06-26] MEDS ORDERED: CLOP75TA28 PO (15:03)
[2020-06-26] MEDS ORDERED: ASPI81CH43 PO (15:03)
[2020-06-26] MEDS ORDERED: CYAN500T3 PO (15:04)
--- NOTE | 2020-06-26 16:17 | NUR ---
assessment Patient is a 80 year old male who is Maori speaking. Lila ANGUIANO translated for us. Patients cognitive abilities are intact. Prior to admission patient lived home with family and functioned independently. Patient informed me he is able to care for his own ADLs. Per patient he will return home to his prior living arrangements post discharge and family will transport him home. Patient has a cane for home use. Patient will need a fww for home on discharge. I will continue to monitor and follow up as appropriate for any post discharge needs. I informed patient he has a right to speak to a social science analyst regarding all care. I informed patient he has a right to participate in any and all discharge planning. Patient does not have a POA and advanced directive. I have offered patient information on POA and advanced directives. I informed the patient the advantages and benefits of having an Advanced Directive. Patient verbalized understanding and agreed to discharge plan. Addendum: 06/26/20 at 1620 by Selma SOFIA Amended: Links added.
--- NOTE | 2020-06-26 16:20 | NUR ---
D/C Planning Per SS consult for a walker. faxed clinical information to [facility] requesting for walker to be deliver to bedside. Faxed clinical information to [facility] requesting authorization. [id number].
[2020-06-26 16:41] VITALS: BP 146/70
--- NOTE | 2020-06-26 19:07 | NUR ---
Closing Note Report given to pediatric speech language pathologist RN. Patient sitting up at edge of bed eating dinner. No signs or symptoms of distress noted at this time.
--- NOTE | 2020-06-26 19:25 | NUR ---
Opening Shift Note Assumed care of patient. Patient is awake and alert, oriented x 4, resting in bed, no s/s of respiratory distress noted. Respirations are regular and non-labored. No pain reported. Bed in lowest locked position, side rails x 2 up, call light is within reach. Patient instructed on POC and to call for assistance PRN. Will continue to monitor for changes Q1hr and PRN.
[2020-06-26 20:00] VITALS: BP 141/72
[2020-06-26 22:05] VITALS: BP 141/72
[2020-06-26] MEDS: ATORVASTATIN 20 MG TAB PO SCH (22:17)
[2020-06-26] MEDS: DOXAZOSIN MESYL 2 MG TAB PO SCH (22:19)
[2020-06-27] MEDS: IPRATROPIUM BROM 0.5 MG/2.5ML INH SOL NEB SCH ×3 (00:38→11:15)
[2020-06-27 04:56] VITALS: BP 145/74
[2020-06-27 09:00] VITALS: BP 131/74
[2020-06-27] MEDS: CALCIUM CARB 500 MG CHEW TAB PO SCH (09:19)
[2020-06-27] MEDS: ASPirin 81 mg TAB PO SCH (09:19)
[2020-06-27] MEDS: LISINOPRIL 10 MG TAB PO SCH (09:20)
[2020-06-27] MEDS: ENOXAPARIN SOD 40 MG/0.4 ML SYRINGE SC SCH (09:20)
[2020-06-27] MEDS: CYANOCOBALAMIN 500 MCG TAB PO SCH (09:20)
[2020-06-27] MEDS: FLUTICASONE PROP NASAL SPR 0.05 % (50MCG) 16GM EACHNOSTRI SCH (10:00)
[2020-06-27] MEDS ORDERED: CLOPIDOGREL BISULFATE 75 MG TAB PO SCH (10:00)
[2020-06-27 13:00] VITALS: BP 134/74
[2020-06-27] MEDS ORDERED: LISI-648 PO (13:15)
[2020-06-27] MEDS ORDERED: ATOR10TA52 PO (13:20)
--- NOTE | 2020-06-27 16:26 | NUR ---
Discharge instructions given as ordered. Encourage to follow up with PMD as instructed. HOME medications returned to patient. instructed to follow up with pcp. All questions and concerns addressed. Patient verbalized understanding. Medication reconciliation form completed and copy given to patient. Home medications held in Pharmacy returned to patient. IV removed with catheter intact, pressure dressing applied. Telemetry unit returned to ICU. Patient taken to vehicle via wheelchair with all personal belongings, accompanied by staff and family member. No distress noted at time of departure.
== END 2020-06-27 16:40 | disposition home or self-care (01) | DRG 252 ==
LOC: ER 09:05 → EDBD 09:05 → TELE 09:06 → TELE-EAST 18:18 → TELE-WESTW 06-23 13:37 → WEST WING 06-23 13:55 → TELE-WESTW 06-24 11:49
PROVIDERS: ADMIT Hospitalist; ATTEND Internal Medicine
PROC: 037 Upper Arteries, Dilation (ICD-10-PCS; principal; 2020-06-26)
PROC: B312YZZ Fluoroscopy of Left Subclavian Artery using Other Contrast (ICD-10-PCS; 2020-06-26)
PROC: B310YZZ Fluoroscopy of Thoracic Aorta using Other Contrast (ICD-10-PCS; 2020-06-26)
PROC: B41FYZZ Fluoroscopy of Right Lower Extremity Arteries using Other Contrast (ICD-10-PCS; 2020-06-26)
DX: I70.8 Atherosclerosis of other arteries (principal); J96.00 Acute respiratory failure, unspecified whether with hypoxia or hypercapnia; G45.8 Other transient cerebral ischemic attacks and related syndromes; J44.1 Chronic obstructive pulmonary disease with (acute) exacerbation; J98.11 Atelectasis; Z20.828 Contact with and (suspected) exposure to other viral communicable diseases; I10 Essential (primary) hypertension; N40.0 Benign prostatic hyperplasia without lower urinary tract symptoms; K21.9 Gastro-esophageal reflux disease without esophagitis; E78.5 Hyperlipidemia, unspecified; F17.200 Nicotine dependence, unspecified, uncomplicated; I25.10 Atherosclerotic heart disease of native coronary artery without angina pectoris; E53.8 Deficiency of other specified B group vitamins; Z86.73 Personal history of transient ischemic attack (TIA), and cerebral infarction without residual deficits; Z87.01 Personal history of pneumonia (recurrent); Z82.49 Family history of ischemic heart disease and other diseases of the circulatory system; Z91.81 History of falling; Z90.49 Acquired absence of other specified parts of digestive tract; Z85.828 Personal history of other malignant neoplasm of skin
CPT/HCPCS: 36415; 37236; 37237; 70450; 70551; 71045; 71275; 75600; 75710; 76000; 76942; 80048; 80053; 80061; 80307; 81001; 82306; 82607; 82728; 82746; 82962; 83036; 83605; 83615; 83735; 83880; 84443; 84484; 85025; 85379; 85610; 85730; 86141; 86850; 86900; 86901; 87040; 87086; 87426; 93005; 93306; 93886; 94640; 96365; 96366; 96367; 99152; 99153; C1781; G0378; J0696; J1100; J2250; J3490; Q9967

== ENCOUNTER 2021-04-19 13:01 | Emergency (ER) | payer OTHER, MEDICAID ==
[~2021-04-19] VITALS: Ht 175.3 cm; Wt 68.9 kg
[~2021-04-19 13:01] MED LIST: ASPI81CH43 PO; ATOR10TA52 PO; CLOP75TA28 PO; CYAN500T3 PO; HYDR2.5L TOP; LISI-716 PO; TRAM50TA2 PO
[2021-04-19 13:22] VITALS: BP 132/61
== END 2021-04-19 17:17 | disposition home or self-care (01) ==
LOC: ER 13:01
DX: J02.9 Acute pharyngitis, unspecified (principal); R05 Cough; R09.89 Other specified symptoms and signs involving the circulatory and respiratory systems; I10 Essential (primary) hypertension; E78.5 Hyperlipidemia, unspecified; Z90.49 Acquired absence of other specified parts of digestive tract; Z20.822 Contact with and (suspected) exposure to COVID-19
CPT/HCPCS: 36415; 71045; 87426

== ENCOUNTER 2024-03-30 14:01 | Emergency (ER) | payer OTHER, MEDICAID ==
[~2024-03-30] VITALS: Ht 175.3 cm; Wt 75.5 kg
[~2024-03-30 14:01] MED LIST changes: -LISI-716 PO; +LISI10TA34 PO
[2024-03-30] MEDS: ACETAMINOPHEN 500 MG TAB PO ONE (14:53)
[2024-03-30] MEDS: cefTRIAXone SOD 1,000 MG VL IM ONE (14:54)
[2024-03-30 15:20] VITALS: BP 140/64; PULSE 86; RESP 17; TEMP 98.3; O2SAT 97
[2024-03-30] MEDS ORDERED: CEPH500C PO (15:31)
[2024-03-30] MEDS ORDERED: ACET-1080 PO (15:31)
== END 2024-03-30 15:38 | disposition home or self-care (01) ==
LOC: ER 14:01
DX: J03.90 Acute tonsillitis, unspecified (principal); I10 Essential (primary) hypertension; E78.5 Hyperlipidemia, unspecified; Z98.890 Other specified postprocedural states; Z79.899 Other long term (current) drug therapy
CPT/HCPCS: 71045; 96372; 99283; J0696

== ENCOUNTER 2024-07-05 05:13 | Inpatient (IN) | payer OTHER, MEDICAID ==
[~2024-07-05] VITALS: Ht 180.3 cm; Wt 75.6 kg
[~2024-07-05 05:13] MED LIST changes: +ACET-1080 PO; +CEPH500C PO; -HYDR2.5L TOP; +HYDR2.5L4 TOP
[2024-07-05 06:28] VITALS: PULSE 50; O2SAT 97
[2024-07-05] MEDS: SODIUM CHLORIDE 0.9% 500 ML IV ONE (06:39)
[2024-07-05 06:56] LABS: Basophils # (auto) 0 10 ^3/uL (0-0.2); Basophils % (auto) 0.8 % (0.0-2.0); Eosinophils # (auto) 0.2 10 ^3/uL (0-0.8); Eosinophils % (auto) 3.7 % (0.0-7.0); Hematocrit 38.8 % (41.0-53.0); Hemoglobin 13.2 g/dL (13.5-17.5); Lymphocytes # (auto) 0.7 10 ^3/uL (0.4-5.4); Lymphocytes % (auto) 15.1 % (10.0-50.0); Mean Corpuscular Hemoglobin 31.8 pg (28.0-32.0); Mean Corpuscular Hgb Conc. 34.1 g/dL (32.0-36.0); Mean Corpuscular Volume 93.1 fL (80.0-100.0); Monocytes # (auto) 0.4 10 ^3/uL (0-1.3); Monocytes % (auto) 8.5 % (0.0-12.0); Neutrophils # (auto) 3.2 10 ^3/uL (1.6-8.6); Neutrophils % (auto) 71.9 % (37.0-80.0); Platelet Count (auto) 187 10^3/uL (140-450); Red Blood Cells 4.17 10^6/uL (4.5-5.90); White Blood Cell 4.4 10^3/uL (4.4-10.8)
[2024-07-05 07:04] LABS: Chloride 110 mmol/L (98-107); Potassium 4.6 mmol/L (3.5-5.1); Sodium 141 mmol/L (136-145)
[2024-07-05 07:05] LABS: Anion Gap 5 (5-15); Carbon Dioxide 26 mmol/L (20-31)
[2024-07-05 07:06] LABS: Calcium 9.5 mg/dL (8.7-10.4)
[2024-07-05 07:10] LABS: BUN/Creatinine Ratio 19.5 (10.0-20.0); Blood Urea Nitrogen 25 mg/dL (9-23); Glucose 106 mg/dL (74-106)
[2024-07-05 07:35] VITALS: PULSE 59; RESP 15; O2SAT 97
[2024-07-05] MEDS ORDERED: ONDANSETRON HCL 4 MG/2 ML VIAL IV PRN (08:30)
[2024-07-05] MEDS ORDERED: NITROGLYCERIN 0.4 MG SL TAB SL PRN (08:30)
[2024-07-05] MEDS ORDERED: MORPHINE SULFATE INJ 2 MG/ml SYRG IV PRN ×2 (08:30)
[2024-07-05] MEDS ORDERED: LOS25T PO (09:20)
[2024-07-05] MEDS ORDERED: FIN5T PO (09:20)
[2024-07-05] MEDS ORDERED: DOXA4TAB83 PO (09:20)
[2024-07-05] MEDS: ASPirin 81 mg TAB PO SCH (11:27)
[2024-07-05 18:08] VITALS: PULSE 51; RESP 16; TEMP 97.7; O2SAT 16; O2SAT 98
[2024-07-05 18:19] VITALS: BP 133/44; PULSE 49; RESP 22; TEMP 98; O2SAT 98
[2024-07-05 20:00] VITALS: PULSE 58
[2024-07-05 21:00] VITALS: BP 119/53; PULSE 46; RESP 20; TEMP 97.3; O2SAT 97
[2024-07-05] MEDS: ATORVASTATIN 20 MG TAB PO SCH (21:20)
[2024-07-06] VITALS (8 sets, daily range): BP systolic 101–144; BP diastolic 48–59; PULSE 48–72; RESP 15–18; TEMP 96.7–98.7; O2SAT 95–98
[2024-07-06] MEDS: ACETAMINOPHEN 325 MG TAB PO PRN (00:45)
[2024-07-06 05:50] LABS: Chloride 109 mmol/L (98-107); Potassium 4.3 mmol/L (3.5-5.1); Sodium 139 mmol/L (136-145)
[2024-07-06 05:51] LABS: Anion Gap 5 (5-15); Carbon Dioxide 25 mmol/L (20-31)
[2024-07-06 05:56] LABS: BUN/Creatinine Ratio 18.9 (10.0-20.0); Blood Urea Nitrogen 21 mg/dL (9-23); Glucose 99 mg/dL (74-106)
[2024-07-06 05:59] LABS: Basophils # (auto) 0 10 ^3/uL (0-0.2); Eosinophils # (auto) 0.3 10 ^3/uL (0-0.8); Eosinophils % (auto) 6.8 % (0.0-7.0); Lymphocytes % (auto) 27.3 % (10.0-50.0); Mean Corpuscular Hemoglobin 32.4 pg (28.0-32.0); Mean Corpuscular Hgb Conc. 35.1 g/dL (32.0-36.0); Mean Corpuscular Volume 92.2 fL (80.0-100.0); Monocytes # (auto) 0.4 10 ^3/uL (0-1.3); Monocytes % (auto) 11.7 % (0.0-12.0); Neutrophils % (auto) 53.2 % (37.0-80.0); Nucleated Red Blood Cells % 0.1 %; Platelet Count (auto) 199 10^3/uL (140-450); Red Blood Cells 4.01 10^6/uL (4.5-5.90); Red Cell Distribution Width 14.8 % (11.8-14.3); White Blood Cell 3.8 10^3/uL (4.4-10.8)
[2024-07-06] MEDS: ERGOCALCIFEROL 50,000 UNIT(1.25MG) CAP PO SCH (19:24)
[2024-07-07 01:00] VITALS: BP 116/55; PULSE 60; RESP 18; TEMP 97.8; O2SAT 98
[2024-07-07 03:45] LABS: Urine Bacteria None Seen /hpf (None Seen)
[2024-07-07 04:01] LABS: Urine Blood 1+ /uL (Negative); Urine Clarity Clear (Clear); Urine Color Yellow (Yellow); Urine Protein, UAD Negative (Negative); Urine Specific Gravity 1.023 (1.001-1.035); Urine Urobilinogen Normal (Negative); Urine WBC 1 /hpf (0 - 3); Urine pH 5.5 (5.0-9.0)
[2024-07-07 05:00] VITALS: BP 154/62; PULSE 66; RESP 18; TEMP 97.9; O2SAT 98
[2024-07-07 08:00] VITALS: PULSE 67
[2024-07-07 09:04] VITALS: BP 123/55; PULSE 51; RESP 17; TEMP 98.6; O2SAT 96
[2024-07-07] MEDS: LOSARTAN POTASSIUM 25 MG TAB PO SCH (09:15)
== END 2024-07-07 12:15 | disposition home or self-care (01) | DRG 309 ==
LOC: EDBD 05:13 → ER 05:13 → TELE 08:19 → TELE-EAST 17:59
PROVIDERS: ADMIT Internal Medicine; ATTEND Internal Medicine
DX: R00.1 Bradycardia, unspecified (principal); I50.32 Chronic diastolic (congestive) heart failure; R42 Dizziness and giddiness; I11.0 Hypertensive heart disease with heart failure; E78.5 Hyperlipidemia, unspecified; J45.909 Unspecified asthma, uncomplicated; N40.0 Benign prostatic hyperplasia without lower urinary tract symptoms; K21.9 Gastro-esophageal reflux disease without esophagitis; I25.10 Atherosclerotic heart disease of native coronary artery without angina pectoris; Z90.49 Acquired absence of other specified parts of digestive tract; Z81.8 Family history of other mental and behavioral disorders
CPT/HCPCS: 36415; 70450; 71045; 80048; 80061; 81001; 82306; 82607; 83036; 83735; 83880; 84443; 84484; 85025; 93005; 93306; 93886; 96360; 99291; G0378

== ENCOUNTER 2024-07-24 08:50 | Day surgery (SDC) | payer OTHER, MEDICAID ==
[~2024-07-24] VITALS: Ht 172.7 cm; Wt 75.7 kg
[2024-07-24] VITALS (9 sets, daily range): BP systolic 111–134; BP diastolic 45–63; PULSE 50–58; RESP 11–15; TEMP 97.6; O2SAT 95–97
[~2024-07-24 08:50] MED LIST changes: -ATOR10TA52 PO; -CEPH500C PO; -CLOP75TA28 PO; +DOXA4TAB83 PO; +FIN5T PO; -HYDR2.5L4 TOP; +LANS30TA8 PO; -LISI10TA34 PO; +LOSA-533 PO; +MECL-90 PO; +NITR0.4S29 SL; -TRAM50TA2 PO
[2024-07-24] MEDS ORDERED: IODIXANOL 320MG/ML 100ML BTL IV ONE (08:51)
[2024-07-24] MEDS ORDERED: VERAPAMIL 2.5MG/ML INJ 2ML VIAL IV ONE (10:13)
[2024-07-24] MEDS ORDERED: MIDAZOLAM HCL 2MG/2ML 2ml VIAL (1mg/ml) ONE (10:13)
[2024-07-24] MEDS ORDERED: HEPARIN SODIUM (PORCINE) 5000 UNITS/ML 1ML VIAL ONE (10:13)
[2024-07-24] MEDS ORDERED: fentaNYL CITRATE 100 MCG/2 ML VL ONE (10:13)
[2024-07-24] MEDS ORDERED: LIDOCAINE 2%HCL (LOCAL ANESTH.) INJ 20ML MDV ONE (10:13)
== END 2024-07-24 12:10 | disposition home or self-care (01) ==
LOC: CATH 08:50
PROVIDERS: ATTEND Internal Medicine
DX: I25.110 Atherosclerotic heart disease of native coronary artery with unstable angina pectoris (principal); Z79.82 Long term (current) use of aspirin; Z80.8 Family history of malignant neoplasm of other organs or systems
CPT/HCPCS: 93458; C1769; C1894; J1644; J2250; J3010; Q9967; 99152